=== PATIENT | female | born 1980 | race Two or more races ===

== ENCOUNTER 2023-06-19 22:14 | Emergency (ER) | payer OTHER ==
[~2023-06-19] VITALS: Ht 157.5 cm; Wt 105.2 kg
[2023-06-19] MEDS ORDERED: COZAAR100 MG PO (22:34)
[2023-06-19] MEDS ORDERED: TOPROL XL25 MG PO (22:35)
== END 2023-06-20 05:34 | disposition home or self-care (01) ==
LOC: ER 22:14
DX: R30.0 Dysuria (principal); R10.2 Pelvic and perineal pain; I10 Essential (primary) hypertension

== ENCOUNTER 2025-06-04 09:00 | Inpatient (IN) | payer OTHER ==
[~2025-06-04] VITALS: Ht 165.1 cm; Wt 97.5 kg
[~2025-06-04 09:00] MED LIST: COZAAR100 MG PO; TOPROL XL25 MG PO
[2025-06-04] MEDS ORDERED: ZEPBOUND5 MG/0.5 M (11:23)
[2025-06-04] MEDS ORDERED: PRO-FAST SR37.5 MG PO (11:24)
[2025-06-11] MEDS ORDERED: BUPIVACAINE HCL 30 ML VIAL IJ ONE (08:00)
[2025-06-11] MEDS ORDERED: METRONIDAZOLE/SODIUM CHLORIDE 500 MG/100 ML PIGGYBACK IV ONE (08:00)
[2025-06-11] MEDS ORDERED: CEFTRIAXONE SODIUM 2,000 MG VIAL IV ONE (08:00)
[2025-06-11] MEDS ORDERED: LIDOCAINE HCL 2%/EPINEPHRINE 20ML VIAL IJ SCH (08:00)
[2025-06-11] MEDS ORDERED: ONDANSETRON HCL 2 MG/ML VIAL IV PRN (11:30)
[2025-06-11] MEDS ORDERED: OxyCODONE HCL 5 MG TABLET (ROXICODONE) PO PRN (11:30)
[2025-06-11] MEDS ORDERED: MORPHINE SULFATE 4 MG/ML CARTRIDGE IV PRN (11:30)
[2025-06-11] MEDS ORDERED: RINGERS SOLUTION,LACTATED 1,000 ML IV SCH (11:30)
[2025-06-11] MEDS ORDERED: MORPHINE SULFATE 4 MG/ML VIAL IV ONE ×2 (12:45→13:15)
[2025-06-11] MEDS ORDERED: ONDANSETRON HCL 2 MG/ML VIAL IV ONE (12:50)
[2025-06-11] MEDS ORDERED: SIMETHICONE 125 MG CAPSULE PO SCH (13:00)
[2025-06-11] MEDS ORDERED: HYOSCYAMINE SULFATE 0.125 MG TAB.SUBL SL SCH (13:00)
[2025-06-11] MEDS ORDERED: ENALAPRILAT DIHYDRATE 1.25 MG/ML VIAL IV PRN (13:30)
[2025-06-11] MEDS ORDERED: ACETAMINOPHEN 500 MG GEL..CAP PO SCH (14:00)
[2025-06-11 15:51] LABS: BASO % 0.1 % (0.1-1.2); EOS # 0.00 (0.04-0.54); EOS % 0.0 % (0.7-7.0); LYMPH # 0.89 (1.18-3.74); LYMPH % 6.4 % (19.3-53.1); MEAN PLATELET VOLUME 10.20 fl (9.4-12.4); MONO # 0.69 (0.24-0.82); MONO % 5.0 % (4.7-12.5); NEUT # 12.18 (1.56-6.13); NEUT % 88.2 % (34.0-71.1); RED CELL DISTRIBUTION WIDTH 12.2 % (11.6-14.4)
[2025-06-11] MEDS ORDERED: POLYETHYLENE GLYCOL 3350 17 GM BLIST.PACK PO SCH (17:00)
[2025-06-11] MEDS ORDERED: CELECOXIB 200 MG CAPSULE PO SCH (17:00)
[2025-06-11] MEDS ORDERED: METOCLOPRAMIDE HCL 5 MG/ML VIAL IV SCH (17:00)
[2025-06-11] MEDS ORDERED: GABAPENTIN 300 MG CAPSULE PO SCH (17:00)
[2025-06-11 18:00] VITALS: BP 105/72; O2SAT 94
[2025-06-11] MEDS ORDERED: FAMOTIDINE/PF 20 MG/2 ML VIAL IV PUSH SCH (21:00)
[2025-06-12 02:00] VITALS: BP 109/68; O2SAT 92
[2025-06-12 06:17] LABS: BASO % 0.2 % (0.1-1.2); EOS # 0.01 (0.04-0.54); EOS % 0.1 % (0.7-7.0); LYMPH # 1.75 (1.18-3.74); LYMPH % 15.3 % (19.3-53.1); MEAN PLATELET VOLUME 10.10 fl (9.4-12.4); MONO # 0.88 (0.24-0.82); MONO % 7.7 % (4.7-12.5); NEUT # 8.77 (1.56-6.13); NEUT % 76.4 % (34.0-71.1); RED CELL DISTRIBUTION WIDTH 12.6 % (11.6-14.4)
[2025-06-12 06:39] LABS: BUN CREA RATIO 12.0 (7.0-25.0); CREATININE SERUM 0.66 mg/dL (0.55-1.02); GFR 96.0; GLUCOSE FASTING 112.0 mg/dL (65-100); OSMOLALITY SERUM 280.0 MOSM/KG (275-295)
[2025-06-12] MEDS ORDERED: LACTOBACILLUS ACIDOPHILUS 1 CAP CAP PO SCH (09:00)
[2025-06-12] MEDS ORDERED: LOSARTAN POTASSIUM 100 MG TABLET PO SCH (09:00)
[2025-06-12] MEDS ORDERED: LACTULOSE 20 G/30 ML BLIST.PACK PO SCH (09:00)
[2025-06-12] MEDS ORDERED: METOPROLOL SUCCINATE 25 MG TAB.SR.24H PO SCH (09:00)
[2025-06-12 10:03] LABS: ABG PH 7.429 (7.35-7.45); ABG PO2 64.5 mmHg (80-100); BICARBONATE 23.3 mmol/l (23-25)
[2025-06-12 10:37] VITALS: BP 102/69; O2SAT 93
[2025-06-12 12:11] VITALS: O2SAT 90
[2025-06-12 12:20] LABS: o2 21 %
[2025-06-12 16:00] VITALS: BP 88/58; O2SAT 95
[2025-06-12] MEDS ORDERED: ENOXAPARIN SODIUM 40 MG/0.4 ML SYRINGE SUBCUTANEO SCH (17:00)
[2025-06-12 17:24] VITALS: O2SAT 86
[2025-06-12 21:48] VITALS: O2SAT 90
[2025-06-13 01:29] VITALS: O2SAT 94
[2025-06-13 06:28] LABS: BASO % 0.3 % (0.1-1.2); EOS # 0.09 (0.04-0.54); EOS % 0.8 % (0.7-7.0); LYMPH # 1.61 (1.18-3.74); LYMPH % 13.8 % (19.3-53.1); MEAN PLATELET VOLUME 10.60 fl (9.4-12.4); MONO # 0.85 (0.24-0.82); MONO % 7.3 % (4.7-12.5); NEUT # 9.03 (1.56-6.13); NEUT % 77.5 % (34.0-71.1); RED CELL DISTRIBUTION WIDTH 12.8 % (11.6-14.4)
[2025-06-13 07:08] LABS: BUN CREA RATIO 14.0 (7.0-25.0); CREATININE SERUM 0.56 mg/dL (0.55-1.02); GFR 116.04; GLUCOSE FASTING 99.0 mg/dL (65-100); OSMOLALITY SERUM 278.0 MOSM/KG (275-295)
[2025-06-13 09:00] VITALS: O2SAT 95
[2025-06-13] MEDS ORDERED: ENOXAPARIN SODIUM 40 MG/0.4 ML SYRINGE SUBCUTANEO SCH (09:00)
[2025-06-13 09:56] VITALS: BP 107/72; O2SAT 96
[2025-06-13 13:54] VITALS: O2SAT 95
[2025-06-13 16:50] VITALS: BP 102/69; O2SAT 94
[2025-06-13] MEDS ORDERED: Cyanocobalamin/Mecobalamin 1 TAB.SL SL NR (17:45)
[2025-06-13] MEDS ORDERED: SOD FERRIC GLUC COMPLX/SUCROSE 62.5 MG in 0.9 % SODIUM CHLORIDE 50 ML IV NR (17:45)
[2025-06-13 20:38] VITALS: O2SAT 95
[2025-06-14] VITALS (9 sets, daily range): BP systolic 102–115; BP diastolic 71–75; O2SAT 90–99
[2025-06-14] MEDS ORDERED: Cyanocobalamin/Mecobalamin 1 TAB.SL SL SCH (09:00)
[2025-06-14] MEDS ORDERED: SOD FERRIC GLUC COMPLX/SUCROSE 62.5 MG in 0.9 % SODIUM CHLORIDE 50 ML IV SCH (09:00)
== END 2025-06-14 18:40 | disposition home or self-care (01) | DRG 330 ==
LOC: SURH 06-11 07:00 → O/R 06-11 08:34 → SURH 06-11 09:00 → SURG 06-11 16:18
PROVIDERS: Internal Medicine Geriatric Medicine; ADMIT Colon & Rectal Surgery; ATTEND Colon & Rectal Surgery
PROC: 0DBP4ZZ Excision of Rectum, Percutaneous Endoscopic Approach (ICD-10-PCS; 2025-06-11)
PROC: 0DBE4ZZ Excision of Large Intestine, Percutaneous Endoscopic Approach (ICD-10-PCS; 2025-06-11)
PROC: 0WQF4ZZ Repair Abdominal Wall, Percutaneous Endoscopic Approach (ICD-10-PCS; 2025-06-11)
PROC: 0DJD8ZZ Inspection of Lower Intestinal Tract, Via Natural or Artificial Opening Endoscopic (ICD-10-PCS; 2025-06-11)
PROC: 0DTN4ZZ Resection of Sigmoid Colon, Percutaneous Endoscopic Approach (ICD-10-PCS; principal; 2025-06-11 07:00)
PROC: 4A12X4Z Monitoring of Cardiac Electrical Activity, External Approach (ICD-10-PCS; 2025-06-12)
DX: K57.20 Diverticulitis of large intestine with perforation and abscess without bleeding (principal); K92.1 Melena; K43.2 Incisional hernia without obstruction or gangrene; N73.6 Female pelvic peritoneal adhesions (postinfective); N99.4 Postprocedural pelvic peritoneal adhesions; D64.9 Anemia, unspecified; G47.30 Sleep apnea, unspecified